=== PATIENT | female | born 1995 | race Caucasian/White ===

== ENCOUNTER 2017-09-03 15:41 | Emergency (ER) | payer BC ==
[2017-09-03 15:54] VITALS: BP 101/60
--- NOTE | 2017-09-03 16:06 | UC ---
Respiratory Complaint HPI - HPI Summary HPI Summary: 21 yo female presents with sinus pain/pressure/congestion and dry cough for the last 3 days. She has been taking mucinex, dayquill/nyquill, and using a nasal spray with no relief. Denies fever, chills, SOB, chest pain. - History of Current Complaint Chief Complaint: UCGeneralIllness Stated Complaint: RUNNY NOSE, HEADACHE, COUGH AND SORE THROAT Time Seen by Provider: 09/03/17 16:06 Hx Obtained From: Patient Onset/Duration: Gradual Onset Severity Initially: Mild Severity Currently: Moderate Pain Intensity: 5 Pain Scale Used: 0-10 Numeric Character: Cough: Nonproductive - Allergies/Home Medications Allergies/Adverse Reactions: Allergies Allergy/AdvReac Type Severity Reaction Status Date / Time No Known Allergies Allergy Verified 09/03/17 15:53 Home Medications: Home Medications Cholecalciferol TAB* [Vitamin D TAB*] 1,000 mg PO DAILY 09/03/17 [History Confirmed 09/03/17] Iron 18 mg PO DAILY 09/03/17 [History Confirmed 09/03/17] PMH/Surg Hx/FS Hx/Imm Hx - Additional Past Medical History Additional PMH: None Previously Healthy: Yes - Surgical History Surgical History: None - Family History Known Family History: Positive: None - Social History Occupation: Student Lives: Alone Alcohol Use: Occasionally Substance Use Type: None Smoking Status (MU): Never Smoked Tobacco Review of Systems Constitutional: Negative Skin: Negative Eyes: Negative ENT: Nasal Discharge, Sinus Congestion, Sinus Pain/Tenderness Respiratory: Cough Cardiovascular: Negative Gastrointestinal: Negative Neurovascular: Negative Neurological: Negative Psychological: Negative All Other Systems Reviewed And Are Negative: Yes Physical Exam - Summary Physical Exam Summary: GENERAL: NAD. WDWN. No pain distress. SKIN: No rashes, sores, lesions, or open wounds. HEENT: Head: AT/NC Eyes: EOM intact. Conjunctiva clear without inflammation or discharge. Ears: Hearing grossly normal. TMs intact, no bulging, erythema, or edema. Nose: Nasal mucosa pink and moist. NTTP maxillary and frontal sinus. Throat: Posterior oropharynx without exudates, erythema, or tonsillar enlargement. Uvula midline. NECK: Supple. Nontender. No lymphadenopathy. CHEST: CTAB. No r/r/w. No accessory muscle use. Breathing comfortably and in no distress. CV: RRR. Without m/r/g. Pulses intact. Brisk cap refill. NEURO: Alert. CN II-XII grossly intact. PSYCH: Age appropriate behavior. Triage Information Reviewed: Yes Vital Signs: Initial Vital Signs Temp 98.6 F 09/03/17 15:50 Pulse 74 09/03/17 15:50 Resp 18 09/03/17 15:50 BP 101/60 09/03/17 15:50 Pulse Ox 99 09/03/17 15:50 Diagnostic Evaluation - Laboratory O2 Sat by Pulse Oximetry: 99 Respiratory Course/Dx - Course Course Of Treatment: Suspect viral illness. Pt is requesting an antibiotic. I had a long conversation with her and told her I will rx zpak, however she should give her symptoms a few more days with OTC remedies to see if she improves. - Differential Dx/Diagnosis Provider Diagnoses: Viral illness Discharge - Sign-Out/Discharge Documenting (check all that apply): Discharge/Admit/Transfer - Discharge Plan Condition: Stable Disposition: HOME Prescriptions: Azithromycin TAB* [Zithromax TAB (Z-JACQUELINE) 250 mg #6 tabs] 2 tab PO .TODAY, THEN 1 DAILY #1 jacqueline Patient Education Materials: Sinusitis (ED) Referrals: No Primary Care Phys,NOPCP [Primary Care Provider] - Additional Instructions: If you develop a fever, shortness of breath, chest pain, new or worsening symptoms - please call your PCP or go to the ED. - Billing Disposition and Condition Condition: STABLE Disposition: HOME
== END 2017-09-03 16:22 | disposition home or self-care (01) ==
LOC: UCEAST 15:41
DX: B34.9 Viral infection, unspecified (principal)
CPT/HCPCS: 99202; G0463